=== PATIENT | male | born 1955 | race Caucasian/White ===

== ENCOUNTER 2018-10-12 17:04 | Emergency (ER) | payer MEDICARE, OTHER ==
[~2018-10-12] VITALS: Ht 175.3 cm; Wt 181.4 kg
[~2018-10-12 17:04] MED LIST: ACTOS 30 MG TAB30 MG; ALLOPURINOL 30300 M1; BACTRIM DS TAB1 EACH; COUMADIN 4 MG TA4 M1; COZAAR 25 MG TA25 M1; DIOVAN320 MG; FISH OIL 1,0001 EAC7; LASIX 40 MG TAB40 M1; LEVEMIR; LOSARTAN POTASS25 MG; METFORMIN HCL500 M2; NORCO 5-325 TA1 EACH PO; NOVOLIN 70100 UNIT/5; NOVOLOG FL100 UNIT/M SUBQ; PROBENECID500 MG; SIMVASTATIN40 MG; VITAMIN D1000 UNIT; XARELTO20 MG; ZETIA10 MG; ZOLOFT100 MG
[2018-10-12] MEDS ORDERED: NORCO 5-325 TA1 EACH PO (18:18)
[2018-10-12 18:30] VITALS: BP 128/75
== END 2018-10-12 18:32 | disposition home or self-care (01) ==
LOC: M.ERS 17:04
DX: M25.562 Pain in left knee (principal); R22.42 Localized swelling, mass and lump, left lower limb; G47.30 Sleep apnea, unspecified; Z86.718 Personal history of other venous thrombosis and embolism; Z86.711 Personal history of pulmonary embolism; Z88.5 Allergy status to narcotic agent